=== PATIENT | male | born 1945 | race Caucasian/White ===

== ENCOUNTER 2017-09-09 12:20 | Inpatient (IN) ==
[2017-09-09] MEDS ORDERED: Ipratropium/Albuterol Neb 3 ML ONE (14:38)
[2017-09-09] MEDS: Ipratropium/Albuterol Neb 3 ML IH SCH ×2 (14:43→20:30)
[2017-09-09 15:21] LABS: ABG Base Excess -2 mEq/L (-2 to 3); ABG HCO3 26 mEq/L (21-27); ABG Oxygen Saturation 94 % (95-98); ABG PCO2 56 mmHg (35-45); ABG PH 7.27 pH Units (7.32-7.45); ABG PO2 81 mmHg (85-104); ABG TCO2 27 mEq/L (20-26)
--- NOTE | 2017-09-09 19:44 | Internal Med History&Physical ---
Date of Encounter: 09/10/17 Time of Encounter: 14:00 Assessment and Plan (1) Pleural effusion, left Current visit: No Status: Acute -CT of chest which was done and showed a large left pleural effusion with collapse of the entire left lung in addition to the occlusion of the left mainstem bronchus with mucoid impaction aspirated material and underlying endobronchial lesion. -Interface Control Officer consulted and appreciate recommendations (2) Acute and chronic respiratory failure Current visit: Yes Status: Acute Qualifiers: Respiratory failure complication: unspecified whether with hypoxia or hypercapnia Qualified Code(s): J96.20 - Acute and chronic respiratory failure , unspecified whether with hypoxia or hypercapnia (3) Pneumonia Current visit: No Status: Acute -Also noted on CT chest noted was moderate right pleural effusion with patchy heterogeneous infiltrate throughout all lobes suggestive of pneumonia -Will cover for HAP;history unknown. 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 Discussed with ICU for comanagement and patient was transferred to [facility] ICU for potential thoracentesis. Labs revealed ABG with severe respiratory acidosis and patient requires BiPAP to maintain sats in low 90s. Discussed with forest nursery worker with recommendations for CT of chest which was done and showed a large left pleural effusion with collapse of the entire left lung in addition to the occlusion of the left mainstem bronchus with mucoid impaction aspirated material and underlying endobronchial lesion. So noted was moderate right pleural effusion with patchy heterogeneous infiltrate throughout all lobes suggestive of pneumonia. Results were discussed with forest nursery worker with recommendations for continued BiPAP until the morning for a potential bronchoscopy/thoracentesis. Past Med Surg Social Fam HX - Past Medical History Medical history: diabetes, hypertension, renal disease, other Psychiatric history: no psych history - Social History Smoking Status: Former smoker Smokeless Tobacco Status: No Alcohol use: none Drug use: none Internal Medicine - H&P: Meds Gabapentin [Neurontin] 100 mg PO TID 365 Days capsule 08/26/17 [Rx] Isosorbide MONOnitrate (24 HR) [Imdur] 60 mg PO DAILY tab.er.24h 08/26/17 [Rx] Magnesium Oxide [Mag-Ox] 400 mg PO BID tablet 08/26/17 [Rx] Amino Acids/Protein Hydrolys [Pro-Stat Awc Liquid Packet] 30 ml PO BID 09/09/17 [History] Bumetanide [Bumex] 1.5 mg PO DAILY 09/09/17 [History] Collagenase Oint [Santyl] 1 appl TP DAILY 09/09/17 [History] Insulin Glargine [Lantus] 15 unit SQ HS 09/09/17 [History] Insulin NPH Hum/Reg Insulin Hm [Novolin 70-30 100 Unit/ml Vial] 20 unit SQ DAILY 09/09/17 [History] Isosorbide MONOnitrate (24 HR) [Imdur] 60 mg PO DAILY 09/09/17 [History] Metoprolol XL (24 HR) Succ [Toprol XL] 50 mg PO DAILY 09/09/17 [History] Metoprolol XL (24 HR) Succ [Toprol Xl] 25 mg PO DAILY 09/09/17 [History] Multivit with Calcium,Iron,Min [Essential Daily] 1 each PO DAILY 09/09/17 [ History] Zinc Sulfate 220 mg PO DAILY 09/09/17 [History] 3 Allergy/AdvReac Type Severity Reaction Status Date / Time No Known Allergies Allergy Verified 09/09/17 10:10 All Systems PM: A 10-system review of systems was performed and is negative for pertinent findings except as documented above in the HPI. - Constitutional Vitals: Temp Pulse Resp BP Pulse Ox 96.4 F L 112 19 137/96 94 09/09/17 14:58 09/09/17 18:00 09/09/17 18:00 09/09/17 18:00 09/09/17 18:00 General appearance: Present: severe distress - ENT ENT exam: Present: mucous membranes dry - Respiratory Respiratory exam: Present: accessory muscle use, respiratory distress - Cardiovascular Cardiovascular exam: Present: RRR, +S1, +S2. Absent: diastolic murmur, gallop, rubs, systolic murmur - Neurological Exam Neurological exam: Present: altered - Psychiatric Psychiatric exam: Present: normal mood Internal Med - H&P Results - Labs CBC & Chem 7: 09/10/17 03:45 09/10/17 03:45 - ABG Interpretation ABG results: 09/09/17 15:04 ABG pH 7.27 L ABG pCO2 56 H ABG pO2 81 L ABG HCO3 26 ABG Total CO2 27 H ABG O2 Saturation 94 L ABG Base Excess -2 - Impressions ITS Impressions Chest CT 09/09/17 15:50 IMPRESSION: Large left pleural effusion with collapse of the entire left lung. There is occlusion of the left mainstem bronchus shortly after its origin, for which mucoid impaction, aspirated material, or underlying endobronchial lesion are considerations. Moderate right pleural effusion with patchy heterogeneous infiltrate throughout all lobes, suggestive of pneumonia. Soft tissue anasarca. Atherosclerosis, including coronary artery calcification. 2.1 cm hypodense left thyroid nodule. In the nonacute setting, thyroid ultrasound would be helpful for further characterization. Results were called by the radiology call center. D/ / Brenton Dutta MD / Brenton Dutta MD Interpreting Provider: Brenton Dutta MD
[2017-09-09] MEDS ORDERED: Naloxone 0.4 MG/ML INJ IVP PRN (19:50)
[2017-09-09] MEDS ORDERED: Vancomycin 1,500 MG in D5% in Water 250 ML IVPB SCH (20:00)
[2017-09-09 20:21] LABS: Basophils % 0.1 %; Hematocrit 31.7 % (37.5-50.1); Hemoglobin 9.2 g/dL (12.9-16.9); Immature Granulocytes % 0.6 % (0-4); Lymphocytes # 0.5 K/mcL (0.6-4.6); Lymphocytes % 2.5 %; Mean Corpuscular Hemoglobin 29.5 pg (28.0-33.3); Mean Corpuscular Volume 101.6 fL (83.0-100.0); Mean Platelet Volume 11.5 fL (9.4-12.4); Monocytes # 0.6 K/mcL (0.0-1.3); Neutrophils # 18.8 K/mcL (1.6-8.9); Platelet Count 218 K/mcL (140-400); Red Blood Count 3.12 M/mcL (4.19-5.50); Red Cell Distribution Width 14.5 % (11.5-14.5); Segmented Neutrophils % 93.8 %
[2017-09-09 20:39] LABS: Albumin/Globulin Ratio 0.6 (1.1-2.2); Bilirubin,Total 0.3 mg/dL (0.3-1.0); Calcium 7.2 mg/dL (8.6-10.3); Globulin 3.4 g/dL (2.4-3.5); Potassium 5.7 mEq/L (3.5-5.1); Total Protein 5.4 g/dL (6.4-8.9)
[2017-09-09] MEDS ORDERED: Vancomycin 1,750 MG in D5% in Water 500 ML IVPB SCH (21:00)
[2017-09-09] MEDS: *HR* Heparin 5,000 UNIT/ML VIAL SQ SCH (21:46)
[2017-09-10] MEDS: Ipratropium/Albuterol Neb 3 ML IH SCH ×6 (00:03→20:06)
[2017-09-10 03:59] LABS: Basophils % 0.1 %; Hematocrit 29.8 % (37.5-50.1); Hemoglobin 8.7 g/dL (12.9-16.9); Immature Granulocytes % 0.4 % (0-4); Lymphocytes # 0.5 K/mcL (0.6-4.6); Lymphocytes % 2.9 %; Mean Corpuscular HGB Conc 29.2 g/dL (31.6-35.5); Mean Corpuscular Volume 99.3 fL (83.0-100.0); Mean Platelet Volume 11.7 fL (9.4-12.4); Monocytes # 0.4 K/mcL (0.0-1.3); Monocytes % 2.6 %; Neutrophils # 14.4 K/mcL (1.6-8.9); Platelet Count 205 K/mcL (140-400); Red Cell Distribution Width 14.5 % (11.5-14.5)
[2017-09-10] MEDS: Insulin LISPRO 300 UNITS/3 ML VIAL SQ SCH ×5 (04:19→20:01)
[2017-09-10 04:32] LABS: Calcium 7.4 mg/dL (8.6-10.3); Potassium 5.5 mEq/L (3.5-5.1)
[2017-09-10 05:35] LABS: ABG Base Excess -1 mEq/L (-2 to 3); ABG HCO3 25 mEq/L (21-27); ABG Oxygen Saturation 95 % (95-98); ABG PCO2 45 mmHg (35-45); ABG PH 7.35 pH Units (7.32-7.45); ABG PO2 79 mmHg (85-104); ABG TCO2 26 mEq/L (20-26); Blood Gas Modality NIV; Blood Gas PEEP 8 cm H2O; Blood Gas Pressure Support 25 cm H2O; Blood Gas VT 500 cc
--- NOTE | 2017-09-10 07:09 | Pulmonology Consult Note ---
<Grabiel Varghese - Last Filed: 09/10/17 10:52> Date of Encounter: 09/10/17 Time of Encounter: 07:08 Assessment and Plan (1) Acute and chronic respiratory failure Current Visit: Yes Status: Acute Patient has been tolerating BiPAP overnight. His O2 saturations remained in the mid 90s. He is in no respiratory distress at this time. He is having mildly labored respirations but is otherwise resting comfortably. He is following commands and answering questions. The patient will likely receive a bronchoscopy as well as thoracentesis for large pleural effusion. We will continue to monitor the patient's respiratory status. Patient had roughly 3 L of fluid that came out of his pleural fluid. Cytology was sent. The patient will also be administered 40 mg IV Lasix today. We will repeat the patient's renal function and potassium. Full liquid ordered for follow-up of input and outputs. Qualifiers: Respiratory failure complication: unspecified whether with hypoxia or hypercapnia Qualified Code(s): J96.20 - Acute and chronic respiratory failure , unspecified whether with hypoxia or hypercapnia (2) Pleural effusion Current Visit: Yes Status: Acute Patient's pleural effusion is worse on the left with essentially total collapse of the left lung. In addition there is a moderate right pleural effusion as well. The patient will likely receive bronchoscopy as well as likely thoracentesis today to drain patient's pleural effusion. (3) Pneumonia Current Visit: No Status: Acute Patient on broad-spectrum antibiotics. There is covering for health care associated pneumonia as the patient's history is poorly known. Currently awaiting a sputum culture and likely sending a bronchitic culture and will likely de-escalate antibiotic at that time. Qualifiers: Pneumonia type: due to unspecified organism Laterality: bilateral Lung location: unspecified part of lung Qualified Code(s): J18.9 - Pneumonia, unspecified organism (4) Lymphedema of both lower extremities Current Visit: No Status: Acute Likely some chronic nature to this due to the patient's ulcers. We will perform an echocardiogram today to evaluate patient's left ventricular EF. The patient will likely receive some diuresis we will continue to monitor the patient's respiratory status. (5) Ulcers of both lower legs Current Visit: No Status: Chronic (6) Renal failure Current Visit: No Status: Chronic Qualifiers: Renal failure chronicity: chronic Chronic kidney disease stage: unspecified stage Qualified Code(s): N18.9 - Chronic kidney disease, unspecified History of Present Illness Consult date: 09/09/17 Requesting physician: Brock Benoit Reason for consult: dyspnea, pneumonia, pleural effusion Chief complaint: Dyspnea History of present illness: 72-year-old male with history of type 2 diabetes insulin-dependent, cardiomyopathy, hypertension arrives to [facility] ICU as a transfer from [place] emergency department due to acute respiratory failure secondary to pleural effusions. Chest CT had large left pleural effusion with collapse of left lung as well as occlusion of the left mainstem bronchus with mucoid impaction aspirated material and underlying endobronchial lesions. Noted moderate right pleural effusion with patchy heterogeneous infiltrate suggestive of pneumonia. The patient was started on IV antibiotics and has been doing well on BiPAP overnight. The patient is alert and oriented per nursing staff overnight but states that the patient has become slightly more confused than when he first arrived to the ICU. In addition the nursing staff noted a large amount of swelling in his scrotum and groin as well as worsening in bilateral lower extremities. This is worsened over the course of the evening as well. The patient is maintaining his O2 saturation in the mid to low 90s on BiPAP. He is slightly tachycardic with a heart rate in the low 100 teens to 120. The patient denies any pain right now but states that he is still having some subjective difficulty breathing. Past Med Surg Social Fam HX - Past Medical History Source: old records reviewed Medical history: diabetes, hypertension, renal disease, other Psychiatric history: no psych history - Social History Smoking Status: Former smoker Smokeless Tobacco Status: No Alcohol use: none Drug use: none Medications and Allergies Gabapentin [Neurontin] 100 mg PO TID 365 Days capsule 08/26/17 [Rx] Isosorbide MONOnitrate (24 HR) [Imdur] 60 mg PO DAILY tab.er.24h 08/26/17 [Rx] Magnesium Oxide [Mag-Ox] 400 mg PO BID tablet 08/26/17 [Rx] Amino Acids/Protein Hydrolys [Pro-Stat Awc Liquid Packet] 30 ml PO BID 09/09/17 [History] Bumetanide [Bumex] 1.5 mg PO DAILY 09/09/17 [History] Collagenase Oint [Santyl] 1 appl TP DAILY 09/09/17 [History] Insulin Glargine [Lantus] 15 unit SQ HS 09/09/17 [History] Insulin NPH Hum/Reg Insulin Hm [Novolin 70-30 100 Unit/ml Vial] 20 unit SQ DAILY 09/09/17 [History] Metoprolol XL (24 HR) Succ [Toprol XL] 50 mg PO DAILY 09/09/17 [History] Multivit with Calcium,Iron,Min [Essential Daily] 1 each PO DAILY 09/09/17 [ History] Zinc Sulfate 220 mg PO DAILY 09/09/17 [History] Potassium Chloride [Klor-Con 10] 10 meq PO DAILY 09/10/17 [History] 3 Allergy/AdvReac Type Severity Reaction Status Date / Time No Known Allergies Allergy Verified 09/09/17 10:10 All Systems: A 10-system review of systems was performed and is negative for pertinent findings except as documented above in the HPI. - Constitutional Constitutional: weakness - EENT Nose, mouth and throat: dry mouth - Cardiovascular Cardiovascular: dyspnea, edema, pedal edema - Respiratory Respiratory: cough, dyspnea, dyspnea on exertion - Gastrointestinal Gastrointestinal: no abdominal pain Physical Examination Vital Signs: Vital Signs, Last 4 Hours Pulse Resp BP Pulse Ox 09/10/17 06:00 73 09/10/17 05:00 121 20 107/71 95 09/10/17 04:02 22 109/73 91 09/10/17 04:00 75 22 109/73 96 General appearance: no acute distress, alert Eyes: nonicteric ENT: oropharynx dry Effort: mildly labored Inspection: normal Auscultation: bilateral: diminished breath sounds (Almost no lung sounds on left ) Cardiovascular: other (Tachycardic and regular rhythm) Gastrointestinal: soft, non-tender Integumentary: normal Extremities: no cyanosis, edema (2+ pitting with bandages in place. Edema radiates into scrotum and penis.), other (Chronic ulcerations noted on bilateral lower extremities with dressings in place.) non-focal exam, other (Patient was able to answer questions correctly and follow commands.) Results - Laboratory Findings CBC and BMP: 09/10/17 03:45 09/10/17 03:45 ABG ABG pH 7.35 pH Units (7.32-7.45) 09/10/17 05:32 ABG pCO2 45 mmHg (35-45) 09/10/17 05:32 ABG pO2 79 mmHg (85-104) L 09/10/17 05:32 ABG O2 Saturation 95 % (95-98) 09/10/17 05:32 Abnormal lab findings: Abnormal lab results WBC 15.3 K/mcL (4.3-11.1) H 09/10/17 03:45 RBC 3.00 M/mcL (4.19-5.50) L 09/10/17 03:45 Hgb 8.7 g/dL (12.9-16.9) L 09/10/17 03:45 Hct 29.8 % (37.5-50.1) L 09/10/17 03:45 MCHC 29.2 g/dL (31.6-35.5) L 09/10/17 03:45 Neutrophils # 14.4 K/mcL (1.6-8.9) H 09/10/17 03:45 Lymphocytes # 0.5 K/mcL (0.6-4.6) L 09/10/17 03:45 ABG pO2 79 mmHg (85-104) L 09/10/17 05:32 Potassium 5.5 mEq/L (3.5-5.1) H 09/10/17 03:45 Chloride 108 mEq/L (98-107) H 09/10/17 03:45 BUN 70 mg/dL (8-23) H 09/10/17 03:45 Creatinine 1.89 mg/dL (0.70-1.30) H 09/10/17 03:45 Est GFR ( Amer) 43 (> 60) L 09/10/17 03:45 Est GFR (Non-Af Amer) 35 (> 60) L 09/10/17 03:45 BUN/Creatinine Ratio 37 (6-26) H 09/10/17 03:45 Glucose 245 mg/dL (70-105) H 09/10/17 03:45 POC Glucose 254 (58-89) H 09/10/17 00:06 Calculated Osmolality 317 (280-300) H 09/10/17 03:45 Calcium 7.4 mg/dL (8.6-10.3) L 09/10/17 03:45 Alkaline Phosphatase 107 Units/L (34-104) H 09/09/17 20:10 Serum Total Protein 5.4 g/dL (6.4-8.9) L 09/09/17 20:10 Albumin 2.0 g/dL (3.5-5.7) L 09/09/17 20:10 Albumin/Globulin Ratio 0.6 (1.1-2.2) L 09/09/17 20:10 - Clinical Findings Intake & Output: Intake & Output 09/09/17 09/09/17 09/10/17 15:59 23:59 07:59 Weight 97.8 kg 97.8 kg - Attending Attestation I examined this patient and my medical decision-making was reviewed with the Resident Physician. I agree with the documented findings, disposition and treatment plan as described except to the extent set forth below. <Toni Haji W - Last Filed: 09/10/17 14:12> Date of Encounter: 09/10/17 All Systems: A 10-system review of systems was performed and is negative for pertinent findings except as documented above in the HPI. Physical Examination Vital Signs: Vital Signs, Last 4 Hours Temp Pulse Resp BP Pulse Ox 09/10/17 09:32 20 91/56 97 09/10/17 09:00 71 28 112/83 95 09/10/17 08:00 124 18 98/63 94 09/10/17 07:30 98.6 F 09/10/17 07:26 20 93/54 96 09/10/17 06:00 73 Results - Laboratory Findings CBC and BMP: 09/10/17 03:45 09/10/17 11:54 ABG ABG pH 7.35 pH Units (7.32-7.45) 09/10/17 05:32 ABG pCO2 45 mmHg (35-45) 09/10/17 05:32 ABG pO2 79 mmHg (85-104) L 09/10/17 05:32 ABG O2 Saturation 95 % (95-98) 09/10/17 05:32 Abnormal lab findings: Abnormal lab results WBC 15.3 K/mcL (4.3-11.1) H 09/10/17 03:45 RBC 3.00 M/mcL (4.19-5.50) L 09/10/17 03:45 Hgb 8.7 g/dL (12.9-16.9) L 09/10/17 03:45 Hct 29.8 % (37.5-50.1) L 09/10/17 03:45 MCHC 29.2 g/dL (31.6-35.5) L 09/10/17 03:45 Neutrophils # 14.4 K/mcL (1.6-8.9) H 09/10/17 03:45 Lymphocytes # 0.5 K/mcL (0.6-4.6) L 09/10/17 03:45 ABG pO2 79 mmHg (85-104) L 09/10/17 05:32 Potassium 5.5 mEq/L (3.5-5.1) H 09/10/17 03:45 Chloride 108 mEq/L (98-107) H 09/10/17 03:45 BUN 70 mg/dL (8-23) H 09/10/17 03:45 Creatinine 1.89 mg/dL (0.70-1.30) H 09/10/17 03:45 Est GFR ( Amer) 43 (> 60) L 09/10/17 03:45 Est GFR (Non-Af Amer) 35 (> 60) L 09/10/17 03:45 BUN/Creatinine Ratio 37 (6-26) H 09/10/17 03:45 Glucose 245 mg/dL (70-105) H 09/10/17 03:45 POC Glucose 254 (58-89) H 09/10/17 00:06 Calculated Osmolality 317 (280-300) H 09/10/17 03:45 Calcium 7.4 mg/dL (8.6-10.3) L 09/10/17 03:45 Alkaline Phosphatase 107 Units/L (34-104) H 09/09/17 20:10 Serum Total Protein 5.4 g/dL (6.4-8.9) L 09/09/17 20:10 Albumin 2.0 g/dL (3.5-5.7) L 09/09/17 20:10 Albumin/Globulin Ratio 0.6 (1.1-2.2) L 09/09/17 20:10 - Clinical Findings Intake & Output: Intake & Output 09/09/17 09/10/17 09/10/17 23:59 07:59 15:59 Intake Total 100 / 100 0 / 0 Output Total 1450 / 1450 Balance 100 / 100 -1450 / -1450 Weight 97.8 kg - Attending Attestation I examined this patient and my medical decision-making was reviewed with the Resident Physician. I agree with the documented findings, disposition and treatment plan as described except to the extent set forth below. We independently had [id number] contact with the patient I spent 35 min of Critical Care time with this patient. It involved decision making of high complexity to assess, manipulate, and support vital organ system failure and/or to prevent further life threatening deterioration of the patient' s condition. The time involved in the performance of separately reportable procedures was not counted toward critical care time. Patient seen and examined at bedside Labs, radiology, chart personally reviewed. Management was reviewed during multidisciplinary critical care rounds. FLY FINISHER: Awake and follows commands. Monitor for Delirium Pulm: Acute Hypoxic Hypercarbic respiratory failure on continues NIPPV repeat ABG is reassuring but patient is at high risk for decompensation. wit b/l Pleural Effusion. Plan for small bore chest tube on left today. Treat for PNA . There is radiographic concern about left endobronchial obstruction with mucus or possible endobronchial lesion. Patient currently too unstable to proceed with bronchoscopy repeat CT scan after has to plate method to evaluate this further this clearly would be more concerning for primary neoplasia however CT scan done last month did not show any evidence of endobronchial obstruction at that time making this less likely but still a possibility. Send Pleural Fluid for studies including cytology Cards: BP stable. BNP elevated c/w CHF last ECHO PEF with indeterminate diastology. Grossly Anasarca on exam cautious diuresis. He has a troponin elevation which is likely demand ischemia we will trend troponin echocardiogram pending official interpretation cardiology consultation based upon results FEN-GI: Nothing by mouth for now Renal: CKD monitor UOP and place nj catheter. Trend serum creatinine twice daily for the next 48 hours. ID: Treating for PNA with antimicrobials with planned to de-escalate based upon speciation and sensitivities Heme/Onc: DVT prophylaxis given Endo: Glucose Monitored Integ/MSK: Skin Care per routine ICU Nursing Protocol to prevent ulcers. Lines: All lines examined without evidence of infection : Dispo: Remain in ICU for critical illness CODE: Full.
[2017-09-10] MEDS ORDERED: Vancomycin 1,500 MG in D5% in Water 250 ML IVPB SCH ×2 (08:00→12:00)
--- NOTE | 2017-09-10 09:16 | IR Procedure Note ---
Date of procedure: 09/10/17 Consent Obtained: Verbal consent Timeout: Correct patient and procedure verified, Correct site verified, Time out performed, Skin prep completed Local anesthetic: Lidocaine 1% Indications: Left sided large pleural effusion Procedure Performed: Left sided chest tube placement Was there an internal medicine physician assistant present: Yes Tuberculosis Specialist: Huber Garcia Site/Technique: Left chest. Drain placed at bedside in ICU. I was scrubbed in and assisted. Results/Findings: Draining well. No immediate complications. Estimated blood loss (cc): 1 Complications: None; Tolerated procedure well Post Procedure Treatment Plan: Monitoring in unit Specimen: Sample sent to lab
[2017-09-10] MEDS: *HR* Heparin 5,000 UNIT/ML VIAL SQ SCH ×3 (09:21→21:01)
[2017-09-10] MEDS: Levofloxacin 750 MG/150 ML 750 MG/150 ML BAG IVPB SCH (09:21)
[2017-09-10 10:20] LABS: RBC,Pleural Fluid < 0.002 M/mcL
[2017-09-10] MEDS ORDERED: Furosemide 40 MG/4 ML VIAL IVP ONE (10:50)
[2017-09-10] MEDS ORDERED: Albumin 25% 25gram/100mL 25 GM/100 ML IV.SOLN IVPB ONE (10:53)
[2017-09-10 10:54] LABS: Appearance of Pleural Fl Clear (Clear)
[2017-09-10 12:37] LABS: Calcium 7.1 mg/dL (8.6-10.3); Potassium 5.1 mEq/L (3.5-5.1)
[2017-09-10 13:35] LABS: Adenovirus Not Detected (Not Detect); Bordetella Pertussis Not Detected (Not Detect); Chlamydophila pneumoniae Not Detected (Not Detect); Coronavirus 229E Not Detected (Not Detect); Coronavirus HKU1 Not Detected (Not Detect); Coronavirus NL63 Not Detected (Not Detect); Coronavirus OC43 Not Detected (Not Detect); Human Metapneumovirus Not Detected (Not Detect); Human Rhinovirus/Enterovirus Not Detected (Not Detect); Influenza A Subtype 2009 H1 Not Detected (Not Detect); Influenza A Untypeable Not Detected (Not Detect); Influenza B Not Detected (Not Detect); Mycoplasma pneumoniae Not Detected (Not Detect); Parainfluenza Virus 1 Not Detected (Not Detect); Parainfluenza Virus 2 Not Detected (Not Detect); Parainfluenza Virus 3 Not Detected (Not Detect); Parainfluenza Virus 4 Not Detected (Not Detect); Respiratory Syncytial Virus Not Detected (Not Detect)
[2017-09-11] MEDS: Ipratropium/Albuterol Neb 3 ML IH SCH ×7 (00:03→23:46)
[2017-09-11] MEDS: Insulin LISPRO 300 UNITS/3 ML VIAL SQ SCH ×7 (00:16→23:31)
[2017-09-11] MEDS: *HR* Heparin 5,000 UNIT/ML VIAL SQ SCH ×3 (05:00→21:00)
[2017-09-11 05:09] LABS: ABG Base Excess -2 mEq/L (-2 to 3); ABG HCO3 24 mEq/L (21-27); ABG Oxygen Saturation 93 % (95-98); ABG PCO2 44 mmHg (35-45); ABG PH 7.34 pH Units (7.32-7.45); ABG PO2 70 mmHg (85-104); ABG TCO2 25 mEq/L (20-26); Blood Gas Modality NIV; Blood Gas PEEP 8 cm H2O; Blood Gas VT 500 cc
[2017-09-11 05:31] LABS: Basophils % 0.1 %; Hematocrit 24.9 % (37.5-50.1); Hemoglobin 7.5 g/dL (12.9-16.9); Immature Granulocytes % 0.4 % (0-4); Lymphocytes # 0.6 K/mcL (0.6-4.6); Lymphocytes % 5.5 %; Mean Corpuscular HGB Conc 30.1 g/dL (31.6-35.5); Mean Corpuscular Hemoglobin 29.3 pg (28.0-33.3); Mean Corpuscular Volume 97.3 fL (83.0-100.0); Mean Platelet Volume 12.1 fL (9.4-12.4); Monocytes # 0.3 K/mcL (0.0-1.3); Monocytes % 2.6 %; Neutrophils # 10.4 K/mcL (1.6-8.9); Platelet Count 202 K/mcL (140-400); Red Blood Count 2.56 M/mcL (4.19-5.50); Red Cell Distribution Width 14.6 % (11.5-14.5); Segmented Neutrophils % 91.4 %
[2017-09-11 05:46] LABS: Calcium 7.4 mg/dL (8.6-10.3); Magnesium 1.5 mg/dL (1.6-2.6); Potassium 4.8 mEq/L (3.5-5.1)
--- NOTE | 2017-09-11 07:41 | Pulmonology Progress Note ---
<Grabiel Varghese - Last Filed: 09/11/17 10:40> Date of Encounter: 09/11/17 Time of Encounter: 07:41 Assessment and Plan (1) Acute and chronic respiratory failure Current Visit: Yes Status: Acute Improved respiratory status from yesterday. The patient was placed on oxi-mask and is now on high flow nasal cannula. He is tolerating this well. He is in no respiratory distress at this time. We will continue to monitor the patient' s respiratory status over the course of the day. He will have BiPAP when necessary. Qualifiers: Respiratory failure complication: unspecified whether with hypoxia or hypercapnia Qualified Code(s): J96.20 - Acute and chronic respiratory failure , unspecified whether with hypoxia or hypercapnia (2) Pleural effusion Current Visit: Yes Status: Acute Improved pleural effusion on the left [place]. There is developed a pneumothorax ex vacuo in appearance of the left side. The patient's chest tube atria and water seal demonstrates roughly 800 mL of fluid within it. There is no suction to the wall at this time. We will continue to monitor the patient's fluid from his chest tube. The patient will need outpatient follow-up with cardiology. (3) Pneumonia Current Visit: No Status: Acute Patient's ammonia has continued to worsen of the right lung. He is continued on broad-spectrum antibiotic since this time. We are currently awaiting sputum cultures. The patient's blood cultures are negative for any growth but until we receive sputum cultures we will not de-escalate the patient antibiotics. Qualifiers: Pneumonia type: due to unspecified organism Laterality: bilateral Lung location: unspecified part of lung Qualified Code(s): J18.9 - Pneumonia, unspecified organism (4) Renal failure Current Visit: Yes Status: Acute Acute on chronic kidney failure. The patient's kidney injury has continued to worsen. His GFR is remained stable. His potassium is ray and stable. The patient is receiving 5% albumin 500 mL today. We will continue to monitor the patient's renal function. Qualifiers: Renal failure chronicity: chronic Chronic kidney disease stage: unspecified stage Qualified Code(s): N18.9 - Chronic kidney disease, unspecified (5) Anemia Current Visit: No Status: Acute There is likely a chronic component of this. We will continue to monitor the patient's hemoglobin. Qualifiers: Anemia type: unspecified type Qualified Code(s): D64.9 - Anemia, unspecified (6) Lymphedema of both lower extremities Current Visit: No Status: Acute Improved. (7) Ulcers of both lower legs Current Visit: No Status: Chronic Subjective Principal diagnosis: Pleural effusion, respiratory distress, pneumonia Interval history: Patient done well overnight. He was taken off BiPAP fairly early this morning. He is to Aloxi mask and is now currently on 6 L nasal cannula that is humidified. The patient has an O2 saturation ranging from 89-92% on this. He is in no respiratory distress at this time. The patient's chest tube was clamped off overnight. CT scan this morning demonstrates pneumothorax, remaining pleural fluid on the left side. Worsening right sided pneumonia. The patient's respiratory status has continued to improve. The patient's mental status is also continued to improve. The patient is requesting something to drink. He states he is feeling much better this morning. The patient is in no respiratory distress. He was seen by wound care one day ago for his bilateral lower extremity ulcerations. Swelling in bilateral lower extremities, scrotum, upper extremities has decreased. The patient was administered 40 mg IV Lasix 1 day ago. The patient denies any other complaints at this time. Objective PUL Vital signs: Last Vital Signs Temp 97 F L 09/11/17 04:00 Pulse 76 09/11/17 06:00 Resp 7 09/11/17 06:00 BP 137/80 09/11/17 06:00 Pulse Ox 94 09/11/17 06:00 General appearance: no acute distress Eyes: nonicteric ENT: oropharynx dry Neck: supple Effort: normal Auscultation: right: rhonchi, bilateral: diminished breath sounds Cardiovascular: regular rate and rhythm Gastrointestinal: soft, non-tender, non-distended Extremities: no cyanosis, edema (1+ pitting edema bilateral lower extremities.) , other (Dressings in place of bilateral lower extremities.) Musculoskeletal: no deformities normal mental status, non-focal exam mood appropriate, affect normal Ventilator Settings Ventilator Settings: Ventilator Settings, Last 8 Hours Ventilator Tidal Volume 500 Setting Results - Laboratory Findings CBC and BMP: 09/11/17 04:47 09/11/17 05:15 ABG ABG pH 7.34 pH Units (7.32-7.45) 09/11/17 05:05 ABG pCO2 44 mmHg (35-45) 09/11/17 05:05 ABG pO2 70 mmHg (85-104) L 09/11/17 05:05 ABG O2 Saturation 93 % (95-98) L 09/11/17 05:05 Abnormal lab findings: Abnormal lab results WBC 11.4 K/mcL (4.3-11.1) H 09/11/17 04:47 RBC 2.56 M/mcL (4.19-5.50) L 09/11/17 04:47 Hgb 7.5 g/dL (12.9-16.9) L 09/11/17 04:47 Hct 24.9 % (37.5-50.1) L 09/11/17 04:47 MCHC 30.1 g/dL (31.6-35.5) L 09/11/17 04:47 RDW 14.6 % (11.5-14.5) H 09/11/17 04:47 Neutrophils # 10.4 K/mcL (1.6-8.9) H 09/11/17 04:47 ABG pO2 70 mmHg (85-104) L 09/11/17 05:05 ABG O2 Saturation 93 % (95-98) L 09/11/17 05:05 Chloride 109 mEq/L (98-107) H 09/11/17 05:15 BUN 79 mg/dL (8-23) H 09/11/17 05:15 Creatinine 2.14 mg/dL (0.70-1.30) H 09/11/17 05:15 Est GFR ( Amer) 37 (> 60) L 09/11/17 05:15 Est GFR (Non-Af Amer) 31 (> 60) L 09/11/17 05:15 BUN/Creatinine Ratio 37 (6-26) H 09/11/17 05:15 Glucose 145 mg/dL (70-105) H 09/11/17 05:15 POC Glucose 160 (58-89) H 09/11/17 03:27 Calculated Osmolality 320 (280-300) H 09/11/17 05:15 Calcium 7.4 mg/dL (8.6-10.3) L 09/11/17 05:15 Magnesium 1.5 mg/dL (1.6-2.6) L 09/11/17 05:15 Alkaline Phosphatase 107 Units/L (34-104) H 09/09/17 20:10 Serum Total Protein 5.4 g/dL (6.4-8.9) L 09/09/17 20:10 Albumin 2.0 g/dL (3.5-5.7) L 09/09/17 20:10 Albumin/Globulin Ratio 0.6 (1.1-2.2) L 09/09/17 20:10 - Clinical Findings Intake & Output: Intake & Output 09/10/17 09/10/17 09/11/17 15:59 23:59 07:59 Intake Total 350 / 350 350 / 350 100 / 100 Output Total 1750 / 1750 500 / 500 Balance -1400 / -1400 -150 / -150 100 / 100 Weight 97.8 kg Consult Discharge Plan - Plan Referrals: NONE,PCP [Primary Care Provider] - - Attending Attestation I examined this patient and my medical decision-making was reviewed with the Resident Physician. I agree with the documented findings, disposition and treatment plan as described except to the extent set forth below. <Toni Haji W - Last Filed: 09/11/17 12:15> Date of Encounter: 09/11/17 Objective PUL Vital signs: Last Vital Signs Temp 96.4 F L 09/11/17 07:50 Pulse 78 09/11/17 08:00 Resp 23 09/11/17 08:34 BP 119/77 09/11/17 08:34 Pulse Ox 90 09/11/17 08:34 Ventilator Settings Ventilator Settings: Ventilator Settings, Last 8 Hours Ventilator Tidal Volume 500 Setting Ventilator Tidal Volume 500 Setting Results - Laboratory Findings CBC and BMP: 09/11/17 04:47 09/11/17 05:15 ABG ABG pH 7.34 pH Units (7.32-7.45) 09/11/17 05:05 ABG pCO2 44 mmHg (35-45) 09/11/17 05:05 ABG pO2 70 mmHg (85-104) L 09/11/17 05:05 ABG O2 Saturation 93 % (95-98) L 09/11/17 05:05 Abnormal lab findings: Abnormal lab results WBC 11.4 K/mcL (4.3-11.1) H 09/11/17 04:47 RBC 2.56 M/mcL (4.19-5.50) L 09/11/17 04:47 Hgb 7.5 g/dL (12.9-16.9) L 09/11/17 04:47 Hct 24.9 % (37.5-50.1) L 09/11/17 04:47 MCHC 30.1 g/dL (31.6-35.5) L 09/11/17 04:47 RDW 14.6 % (11.5-14.5) H 09/11/17 04:47 Neutrophils # 10.4 K/mcL (1.6-8.9) H 09/11/17 04:47 ABG pO2 70 mmHg (85-104) L 09/11/17 05:05 ABG O2 Saturation 93 % (95-98) L 09/11/17 05:05 Chloride 109 mEq/L (98-107) H 09/11/17 05:15 BUN 79 mg/dL (8-23) H 09/11/17 05:15 Creatinine 2.14 mg/dL (0.70-1.30) H 09/11/17 05:15 Est GFR ( Amer) 37 (> 60) L 09/11/17 05:15 Est GFR (Non-Af Amer) 31 (> 60) L 09/11/17 05:15 BUN/Creatinine Ratio 37 (6-26) H 09/11/17 05:15 Glucose 145 mg/dL (70-105) H 09/11/17 05:15 POC Glucose 160 (58-89) H 09/11/17 03:27 Calculated Osmolality 320 (280-300) H 09/11/17 05:15 Calcium 7.4 mg/dL (8.6-10.3) L 09/11/17 05:15 Magnesium 1.5 mg/dL (1.6-2.6) L 09/11/17 05:15 Alkaline Phosphatase 107 Units/L (34-104) H 09/09/17 20:10 Serum Total Protein 5.4 g/dL (6.4-8.9) L 09/09/17 20:10 Albumin 2.0 g/dL (3.5-5.7) L 09/09/17 20:10 Albumin/Globulin Ratio 0.6 (1.1-2.2) L 09/09/17 20:10 - Clinical Findings Intake & Output: Intake & Output 09/10/17 09/11/17 09/11/17 23:59 07:59 15:59 Intake Total 350 / 350 100 / 100 360 / 360 Output Total 500 / 500 370 / 370 Balance -150 / -150 -270 / -270 360 / 360 Weight 97.8 kg - Attending Attestation I examined this patient and my medical decision-making was reviewed with the Resident Physician. I agree with the documented findings, disposition and treatment plan as described except to the extent set forth below. We independently had [id number] contact with the patient Patient seen and examined at bedside Labs, radiology, chart personally reviewed. Management was reviewed during multidisciplinary critical care rounds. 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 Left chest tube to water seal today with repeat CT scan notable for persistent PTX Ex Vacuo. Pleural fluid studies thus far suggest transudative process (rest of studies pending). Respiratory status is tenuous however on [place] Nasal Cannula Cards: BNP elevated and ECHO suggest decreased EF% he will need cardiology evaluation on an outpatient basis. Holding diuresis because of worsening SETH FEN-GI: ADAT. Renal: SETH on CKD worsened overnight likely related to diuresis. TBW overloaded intravascular depleted giving albumin challenge today. Cont to monitor UOP ID: Treating for PNA with plan to deescalate ABx. Heme/Onc: DVT prophylaxis Given Endo: Glucose Monitored Integ/MSK: Skin Care per routine ICU Nursing Protocol to prevent ulcers. Lines: All lines examined without evidence of infection : Dispo: Remain in ICU today CODE: Full
[2017-09-11] MEDS ORDERED: Aminoglycoside Consult 1 EACH MC ONE (08:17)
[2017-09-11 14:31] LABS: Glucose,Pleural Fluid 195 mg/dL (No Ref Range); Total Protein,Pleural Fluid < 3.0 g/dL (No Ref Range); Triglycerides, Pleural Fluid 10 mg/dL (No Ref Range)
[2017-09-12] MEDS: Insulin LISPRO 300 UNITS/3 ML VIAL SQ SCH ×4 (03:12→16:24)
[2017-09-12] MEDS: Ipratropium/Albuterol Neb 3 ML IH SCH ×5 (04:20→19:55)
[2017-09-12] MEDS: *HR* Heparin 5,000 UNIT/ML VIAL SQ SCH (05:35)
[2017-09-12 06:04] LABS: Basophils % 0.1 %; Hemoglobin 8.7 g/dL (12.9-16.9)
[2017-09-12 06:06] LABS: Eosinophils % 0.1 %; Hematocrit 29.4 % (37.5-50.1); Immature Granulocytes % 0.5 % (0-4); Lymphocytes # 0.4 K/mcL (0.6-4.6); Lymphocytes % 3.4 %; Mean Corpuscular HGB Conc 29.6 g/dL (31.6-35.5); Mean Corpuscular Hemoglobin 29.6 pg (28.0-33.3); Mean Platelet Volume 11.4 fL (9.4-12.4); Monocytes # 0.4 K/mcL (0.0-1.3); Monocytes % 3.5 %; Platelet Count 210 K/mcL (140-400); Red Blood Count 2.94 M/mcL (4.19-5.50); Red Cell Distribution Width 14.6 % (11.5-14.5); Segmented Neutrophils % 92.4 %
[2017-09-12 06:34] LABS: Calcium 7.7 mg/dL (8.6-10.3); Magnesium 1.7 mg/dL (1.6-2.6)
[2017-09-12 06:49] LABS: Hypochromasia Present (Not Present)
[2017-09-12 06:50] LABS: Platelet Clumps Few (Not Present); Platelet Estimate Normal (Normal)
--- NOTE | 2017-09-12 07:12 | Pulmonology Progress Note ---
<Grabiel Varghese - Last Filed: 09/12/17 10:41> Date of Encounter: 09/12/17 Time of Encounter: 07:12 Assessment and Plan (1) Acute and chronic respiratory failure Current Visit: Yes Status: Acute Improved respiratory status from yesterday. Patient has intermittently been on occipital scalp is occasional without difficulty. Patient's chest tube is currently draining to gravity. Qualifiers: Respiratory failure complication: unspecified whether with hypoxia or hypercapnia Qualified Code(s): J96.20 - Acute and chronic respiratory failure , unspecified whether with hypoxia or hypercapnia (2) Pleural effusion Current Visit: Yes Status: Acute Improved pleural effusion on the left lung field. There is a continued pneumothorax ex vacuo in appearance of the left side. We will continue to monitor the patient's fluid from his chest tube. The patient will need outpatient follow-up with cardiology. (3) Pneumonia Current Visit: No Status: Acute Patient's ammonia has continued to worsen of the right lung. He is continued on broad-spectrum antibiotic since this time. We are currently awaiting sputum cultures. The patient's blood cultures are negative for any growth but until we receive sputum cultures finalized we will not de-escalate the patient antibiotics. Qualifiers: Pneumonia type: due to unspecified organism Laterality: bilateral Lung location: unspecified part of lung Qualified Code(s): J18.9 - Pneumonia, unspecified organism (4) Renal failure Current Visit: Yes Status: Acute Acute on chronic kidney failure. The patient's kidney injury has continued to worsen. His GFR is remained stable. His potassium is ray and stable. Renal function has continued to worsen. We will continue to monitor the patient's renal function. Nephrology will be consulted. Qualifiers: Renal failure chronicity: chronic Chronic kidney disease stage: unspecified stage Qualified Code(s): N18.9 - Chronic kidney disease, unspecified (5) Anemia Current Visit: No Status: Acute There is likely a chronic component of this, but it is improved today. We will continue to monitor the patient's hemoglobin. Qualifiers: Anemia type: unspecified type Qualified Code(s): D64.9 - Anemia, unspecified (6) Lymphedema of both lower extremities Current Visit: No Status: Acute Improved. (7) Ulcers of both lower legs Current Visit: No Status: Chronic Subjective Principal diagnosis: Pleural effusion, respiratory distress, pneumonia Interval history: Patient's respiratory status has continued to improve. Neurologic coughing last night and chest x-ray appears to have some more inflation of the patient's pneumothorax. The patient's chest tube is draining to gravity overnight. His renal function has continued to worsen with a creatinine of 2.52. Patient's hemoglobin stabilized. The patient will be transferred to a stepdown unit. Patient is also requesting to be transferred to [facility]. We will work on transfer today. Objective PUL Vital signs: Last Vital Signs Temp 96.8 F L 09/12/17 06:00 Pulse 59 09/12/17 06:00 Resp 17 09/12/17 06:00 BP 101/70 09/12/17 06:00 Pulse Ox 96 09/12/17 06:00 General appearance: no acute distress Eyes: nonicteric ENT: oropharynx moist Effort: normal Auscultation: bilateral: diminished breath sounds Cardiovascular: regular rate and rhythm Gastrointestinal: soft, non-tender Integumentary: normal Extremities: no cyanosis, no clubbing, edema (trace pitting), other (Wounds present in bilateral lower extremities. Wound care consulted with dressings on place this time.) normal mental status, non-focal exam Results - Laboratory Findings CBC and BMP: 09/12/17 05:46 09/12/17 05:46 ABG ABG pH 7.34 pH Units (7.32-7.45) 09/11/17 05:05 ABG pCO2 44 mmHg (35-45) 09/11/17 05:05 ABG pO2 70 mmHg (85-104) L 09/11/17 05:05 ABG O2 Saturation 93 % (95-98) L 09/11/17 05:05 Abnormal lab findings: Abnormal lab results WBC 11.9 K/mcL (4.3-11.1) H 09/12/17 05:46 RBC 2.94 M/mcL (4.19-5.50) L 09/12/17 05:46 Hgb 8.7 g/dL (12.9-16.9) L 09/12/17 05:46 Hct 29.4 % (37.5-50.1) L 09/12/17 05:46 MCHC 29.6 g/dL (31.6-35.5) L 09/12/17 05:46 RDW 14.6 % (11.5-14.5) H 09/12/17 05:46 Neutrophils # 11.0 K/mcL (1.6-8.9) H 09/12/17 05:46 Lymphocytes # 0.4 K/mcL (0.6-4.6) L 09/12/17 05:46 Clumped Platelets Few (Not Present) A 09/12/17 05:46 Hypochromasia Present (Not Present) A 09/12/17 05:46 ABG pO2 70 mmHg (85-104) L 09/11/17 05:05 ABG O2 Saturation 93 % (95-98) L 09/11/17 05:05 Chloride 109 mEq/L (98-107) H 09/12/17 05:46 BUN 82 mg/dL (8-23) H 09/12/17 05:46 Creatinine 2.52 mg/dL (0.70-1.30) H 09/12/17 05:46 Est GFR ( Amer) 31 (> 60) L 09/12/17 05:46 Est GFR (Non-Af Amer) 25 (> 60) L 09/12/17 05:46 BUN/Creatinine Ratio 33 (6-26) H 09/12/17 05:46 Glucose 160 mg/dL (70-105) H 09/12/17 05:46 POC Glucose 133 (58-89) H 09/12/17 03:05 Calculated Osmolality 322 (280-300) H 09/12/17 05:46 Calcium 7.7 mg/dL (8.6-10.3) L 09/12/17 05:46 Alkaline Phosphatase 107 Units/L (34-104) H 09/09/17 20:10 Serum Total Protein 5.4 g/dL (6.4-8.9) L 09/09/17 20:10 Albumin 2.0 g/dL (3.5-5.7) L 09/09/17 20:10 Albumin/Globulin Ratio 0.6 (1.1-2.2) L 09/09/17 20:10 Vancomycin Trough 23.2 mcg/mL (10-20) H* 09/11/17 11:24 - Microbiology Findings Microbiology Findings: Microbiology, Last 48 Hours 09/11/17 12:00 Sputum Culture - Preliminary Sputum 09/10/17 15:00 Body Fluid Culture - Preliminary Pleural Fluid 09/11/17 10:46 Legionella Antigen - Final Urine,Catheterized Streptococcus pneumoniae Antigen (M - Final - Clinical Findings Intake & Output: Intake & Output 09/11/17 09/11/17 09/12/17 15:59 23:59 07:59 Intake Total 710 / 710 350 / 350 200 / 200 Output Total 450 / 450 545 / 545 235 / 235 Balance 260 / 260 -195 / -195 -35 / -35 Weight 97.1 kg Consult Discharge Plan - Plan Referrals: NONE,PCP [Primary Care Provider] - - Attending Attestation I examined this patient and my medical decision-making was reviewed with the Resident Physician. I agree with the documented findings, disposition and treatment plan as described except to the extent set forth below. <Toni Haji W - Last Filed: 09/12/17 10:52> Date of Encounter: 09/12/17 Objective PUL Vital signs: Last Vital Signs Temp 96.8 F L 09/12/17 08:00 Pulse 71 09/12/17 10:00 Resp 19 09/12/17 10:00 BP 140/83 09/12/17 10:00 Pulse Ox 98 09/12/17 10:00 Results - Laboratory Findings CBC and BMP: 09/12/17 05:46 09/12/17 05:46 ABG ABG pH 7.34 pH Units (7.32-7.45) 09/11/17 05:05 ABG pCO2 44 mmHg (35-45) 09/11/17 05:05 ABG pO2 70 mmHg (85-104) L 09/11/17 05:05 ABG O2 Saturation 93 % (95-98) L 09/11/17 05:05 Abnormal lab findings: Abnormal lab results WBC 11.9 K/mcL (4.3-11.1) H 09/12/17 05:46 RBC 2.94 M/mcL (4.19-5.50) L 09/12/17 05:46 Hgb 8.7 g/dL (12.9-16.9) L 09/12/17 05:46 Hct 29.4 % (37.5-50.1) L 09/12/17 05:46 MCHC 29.6 g/dL (31.6-35.5) L 09/12/17 05:46 RDW 14.6 % (11.5-14.5) H 09/12/17 05:46 Neutrophils # 11.0 K/mcL (1.6-8.9) H 09/12/17 05:46 Lymphocytes # 0.4 K/mcL (0.6-4.6) L 09/12/17 05:46 Clumped Platelets Few (Not Present) A 09/12/17 05:46 Hypochromasia Present (Not Present) A 09/12/17 05:46 ABG pO2 70 mmHg (85-104) L 09/11/17 05:05 ABG O2 Saturation 93 % (95-98) L 09/11/17 05:05 Chloride 109 mEq/L (98-107) H 09/12/17 05:46 BUN 82 mg/dL (8-23) H 09/12/17 05:46 Creatinine 2.52 mg/dL (0.70-1.30) H 09/12/17 05:46 Est GFR ( Amer) 31 (> 60) L 09/12/17 05:46 Est GFR (Non-Af Amer) 25 (> 60) L 09/12/17 05:46 BUN/Creatinine Ratio 33 (6-26) H 09/12/17 05:46 Glucose 160 mg/dL (70-105) H 09/12/17 05:46 POC Glucose 133 (58-89) H 09/12/17 03:05 Calculated Osmolality 322 (280-300) H 09/12/17 05:46 Calcium 7.7 mg/dL (8.6-10.3) L 09/12/17 05:46 Alkaline Phosphatase 107 Units/L (34-104) H 09/09/17 20:10 Serum Total Protein 5.4 g/dL (6.4-8.9) L 09/09/17 20:10 Albumin 2.0 g/dL (3.5-5.7) L 09/09/17 20:10 Albumin/Globulin Ratio 0.6 (1.1-2.2) L 09/09/17 20:10 Vancomycin Trough 23.2 mcg/mL (10-20) H* 09/11/17 11:24 - Microbiology Findings Microbiology Findings: Microbiology, Last 48 Hours 09/11/17 12:00 Sputum Culture - Preliminary Sputum 09/10/17 15:00 Body Fluid Culture - Preliminary Pleural Fluid 09/11/17 10:46 Legionella Antigen - Final Urine,Catheterized Streptococcus pneumoniae Antigen (M - Final - Clinical Findings Intake & Output: Intake & Output 09/11/17 09/12/17 09/12/17 23:59 07:59 15:59 Intake Total 350 / 350 200 / 200 150 / 150 Output Total 545 / 545 295 / 295 0 / 0 Balance -195 / -195 -95 / -95 150 / 150 Weight 97.1 kg - Attending Attestation I examined this patient and my medical decision-making was reviewed with the Resident Physician. I agree with the documented findings, disposition and treatment plan as described except to the extent set forth below. We independently had [id number] contact with the patient Impression/Plan Acute hypoxic hypercarbic respiratory failure- iproving weaned to hi-flow nasal cannula from BiPAP Pneumonia- improving on ABx with plan to deescalate today. Pleural effusion-transudative likely s/t hydrostatic pressure Hydropneumothorax Ex Vacuo- cont chest tube SETH on CKD -gross anasarca cont albumin Nephro consultation CHF - holding diuresis because of worsening level of sCr Transfer to [facility] per Patient's request pending bed availability.
[2017-09-12] MEDS: Levofloxacin 750 MG/150 ML 750 MG/150 ML BAG IVPB SCH (08:08)
[2017-09-12] MEDS ORDERED: Naloxone 0.4 MG/ML INJ IVP PRN (08:43)
[2017-09-12] MEDS ORDERED: Vancomycin 1 EACH in EMPTY BAG 1 EACH IVPB SCH (09:00)
[2017-09-12] MEDS ORDERED: D5% in Water 1,000 ML IVC PRN (10:40)
[2017-09-12] MEDS ORDERED: *HR* Dextrose 50 % in Water (Syg) 50 ML SYRINGE IVP PRN (10:40)
[2017-09-12] MEDS ORDERED: Dextrose Gel 15 GM/37.5 ML TUBE PO PRN ×2 (10:40)
[2017-09-12] MEDS: Albumin 25% 25gram/100mL 25 GM/100 ML IV.SOLN IVPB SCH ×3 (11:20→23:36)
[2017-09-12] MEDS ORDERED: Insulin LISPRO 300 UNITS/3 ML VIAL SQ SCH ×2 (12:00→21:00)
[2017-09-12] MEDS ORDERED: *HR* Heparin 5,000 UNIT/ML VIAL SQ SCH (14:00)
[2017-09-13] MEDS ORDERED: *HR* Heparin 5,000 UNIT/ML VIAL SQ SCH
[2017-09-13] MEDS ORDERED: *HR* LORazepam 2 MG/ML VIAL ONE (01:06)
[2017-09-13] MEDS: Ipratropium/Albuterol Neb 3 ML IH SCH ×3 (01:17→07:32)
[2017-09-13] MEDS ORDERED: *HR* LORazepam 2 MG/ML VIAL IVP ONE (01:28)
[2017-09-13 02:44] LABS: Basophils % 0.1 %; Hematocrit 28.2 % (37.5-50.1); Hemoglobin 8.2 g/dL (12.9-16.9); Immature Granulocytes % 0.7 % (0-4); Lymphocytes # 0.5 K/mcL (0.6-4.6); Lymphocytes % 3.9 %; Mean Corpuscular HGB Conc 29.1 g/dL (31.6-35.5); Mean Corpuscular Hemoglobin 29.5 pg (28.0-33.3); Mean Corpuscular Volume 101.4 fL (83.0-100.0); Monocytes # 0.4 K/mcL (0.0-1.3); Monocytes % 3.3 %; Neutrophils # 10.5 K/mcL (1.6-8.9); Platelet Count 178 K/mcL (140-400); Red Blood Count 2.78 M/mcL (4.19-5.50); Red Cell Distribution Width 14.5 % (11.5-14.5)
[2017-09-13 03:03] LABS: Calcium 7.7 mg/dL (8.6-10.3); Potassium 4.9 mEq/L (3.5-5.1)
[2017-09-13 05:46] LABS: Hematocrit 34.3 % (37.5-50.1); Mean Corpuscular HGB Conc 29.2 g/dL (31.6-35.5); Mean Corpuscular Hemoglobin 29.9 pg (28.0-33.3); Mean Corpuscular Volume 102.4 fL (83.0-100.0); Mean Platelet Volume 12.3 fL (9.4-12.4); Nucleated Red Blood Cells 0.4 /100 WBC (0); Platelet Count 187 K/mcL (140-400); Red Blood Count 3.35 M/mcL (4.19-5.50); Red Cell Distribution Width 14.6 % (11.5-14.5)
[2017-09-13 05:58] VITALS: BP 122/65
[2017-09-13 06:04] LABS: Albumin/Globulin Ratio 1.2 (1.1-2.2); Bilirubin,Total 0.8 mg/dL (0.3-1.0); Calcium 7.7 mg/dL (8.6-10.3); Globulin 2.6 g/dL (2.4-3.5); Magnesium 1.8 mg/dL (1.6-2.6); Potassium 5.6 mEq/L (3.5-5.1); Total Protein 5.6 g/dL (6.4-8.9)
[2017-09-13 06:20] LABS: Large Platelets Present (Not Present); Macrocytosis Present (Not Present); Platelet Estimate Normal (Normal); Reactive Lymphocytes Present (Not Present)
[2017-09-13 06:22] LABS: Lymphocytes # 2.2 K/mcL (0.6-4.6); Monocytes # 0.3 K/mcL (0.0-1.3); Neutrophils # 12.6 K/mcL (1.6-8.9)
[2017-09-13] MEDS ORDERED: Insulin Human Regular 10 UNIT in 0.9 % Sodium Chloride 10 ML IV ONE (06:42)
[2017-09-13] MEDS ORDERED: *HR* Dextrose 50 % in Water (Syg) 50 ML SYRINGE IVP ONE (06:43)
[2017-09-13] MEDS ORDERED: *HR* Dextrose 50 % in Water (Syg) 50 ML SYRINGE ONE (06:47)
[2017-09-13] MEDS ORDERED: *HR* FentaNYL (PF) 100 MCG/2 ML VIAL IVP ONE (06:55)
[2017-09-13 06:56] LABS: ABG Base Excess -7 mEq/L (-2 to 3); ABG HCO3 22 mEq/L (21-27); ABG Oxygen Saturation 70 % (95-98); ABG PCO2 67 mmHg (35-45); ABG PH 7.13 pH Units (7.32-7.45); ABG PO2 49 mmHg (85-104); ABG TCO2 24 mEq/L (20-26); Blood Gas Modality VC; Blood Gas PEEP 10 cm H2O; Blood Gas Respiration Rate 14; Blood Gas VT 450 cc
[2017-09-13] MEDS ORDERED: *HR* FentaNYL (PF) 100 MCG/2 ML VIAL ONE (06:56)
[2017-09-13] MEDS ORDERED: Furosemide 40 MG/4 ML VIAL IVP ONE (07:00)
[2017-09-13] MEDS ORDERED: Albuterol 2.5 MG/3 ML NEBULIZER ONE (07:09)
[2017-09-13] MEDS ORDERED: *HR* Atropine Sulfate 1 MG/10 ML SYRINGE ONE (07:15)
[2017-09-13] MEDS ORDERED: FentaNYL (PF) 1,000 MCG in 0.9 % Sodium Chloride 80 ML IVC SCH (07:15)
--- NOTE | 2017-09-13 07:28 | Event Note ---
<Joe Malhotra - Last Filed: 09/13/17 07:28> Date of Encounter: 09/13/17 Time of Encounter: 06:00 At approximately 05:00 during post bath cleanup, patient became bradycardic and apneic. Charge nurse was called to room; both RNs assessed for pulse and respirations, and CPR was initiated at 05:10. Sabine zamora called overhead. Patient was then intubated and placed on ventilator support. Central line placement was attempted to maintain pressure support and due to poor IV access. Plan was for R sided IJ CVC. Procedure attempted by Dr. Malhotra, accompanied by Dr. Beckford. Site was prepared and procedure began. At 06:10, the first attempt failed due to guidewire resistance at approximately 20 cm. At this time , patient vitals were as follows: 95/62 (83) HR 66, 18, SPO2 71% on vent at 100% . Dopamine was started at 20mcg. Guidewire and needle were withdrawn, and second attempt was made. At approximately 06:15, second attempt failed, again due to guidewire advancement resistance at approximately 20 cm. Vitals after second attempt were as follows: 69/46 (54) HR 61, 22, 72%. At this time, Dr. Beckford attempted R IJ CVC placement at the same site. At 06:25, 3rd attempt failed, again due to guidewire advancement resistance at approximately 20 cm. Levophed was started 8 mcg. Vital signs were as follows: 70/48 (53) 62, 22, 72% . 4th attempt was made at 06:37. 4rd attempt failed, again due to guidewire advancement resistance at approximately 20 cm. PEEP was increased to 10. Right IJ CVC placement was then stopped after 4th attempt. <Yajaira Beckford - Last Filed: 09/13/17 07:55> Date of Encounter: 09/13/17 Sabine zamora called at 5:10am and I get to bedside immediately. Nurse staff and resident started CPR already. Pt was given epi 1mg and pt regain pulse after treatment. Pt was intubated and ventilation started. However, pt get pulseless again and CPR started again. Epi x1 and bicarbonate 50mEq iv x2 given, pt regain pulse again and BP is maintained. We also give Mg 2g and Calcium 2g iv. Plan for Rt IJ line. Pt has low saturation, PEEP started but BP get down with PEEP, dopamine drip through peripheral line started to maintain BP and allow for PEEP. Pt has transient low BP and low saturation and regain around BP 140/ 90 which allow PEEP at 8 and SpO2 at 82%. Agree with resident's documentation regarding IJ line trials. we didn't start levophed during the IJ line insertion (that's the only statement I cannot agree with resident's documentation). Intensivisit Dr Haji came arround 6:40 and then I sign out to him. He took over and supervise resident Dr Almaraz for right femoral line.
[2017-09-13] MEDS ORDERED: Albuterol 2.5 MG/3 ML NEBULIZER IH ONE (07:32)
[2017-09-13] MEDS ORDERED: Amiodarone Premix 360 MG/200 ML BAG IVC ONE (07:36)
[2017-09-13] MEDS ORDERED: Amiodarone Premix 150 MG/100 ML BAG IVPB ONE (07:36)
[2017-09-13] MEDS ORDERED: Amiodarone Premix 360 MG/200 ML BAG IVC SCH (07:45)
[2017-09-13] MEDS ORDERED: *HR* EPINEPHrine 1 MG/10 ML SYRINGE IVP ONE (08:17)
[2017-09-13] MEDS ORDERED: *HR* Atropine Sulfate 1 MG/10 ML SYRINGE IV ONE (08:17)
[2017-09-13] MEDS ORDERED: *HR* Magnesium Sulfate 2 GM/50 ML PIGGYBACK IVPB ONE (08:17)
--- NOTE | 2017-09-13 08:59 | Procedure Note ---
<Grabiel Varghese - Last Filed: 09/13/17 09:08> Date of procedure: 09/13/17 Pre-op diagnosis: Right-sided pneumothorax Post-op diagnosis: same Procedure: Right-sided chest tube. The patient was positioned in a normal fashion. He was cleaned in a normal fashion. The patient had the location of the chest tube localized by the nipple line as well as mid axillary line. At roughly fifth intercostal space an 8-Stateless catheter was inserted into the pleural cavity. Immediate air return was noted. Roughly 60 mL of air was suctioned out of the catheter by utilizing a syringe during an ACLS code. The catheter was subsequently hooked to a Pleur-evac. This was hooked to suction with a noted air leak. Soon after air leak subsided and pleural fluid began to escape. Catheter was sutured in place and dressing was placed over. Anesthesia: IV sedation Was there an assistant professor of biochemistry present: Yes Care Team Assistant: Toni Haji Estimated blood loss (cc): 0 Specimen: None Pathology: none sent Condition: critical Disposition: ICU <Toni Haji - Last Filed: 09/13/17 12:44> - Attending Attestation I examined this patient and my medical decision-making was reviewed with the Resident Physician. I agree with the documented findings, disposition and treatment plan as described except to the extent set forth below. We independently had [id number] contact with the patient I was present and participated in this procedure the procedure was performed skillfully by the resident physician
--- NOTE | 2017-09-13 08:59 | Procedure Note ---
<Grabiel Varghese - Last Filed: 09/13/17 09:05> Date of procedure: 09/13/17 Pre-op diagnosis: Hypotension Post-op diagnosis: same Procedure: Left femoral vein CVC. The patient was positioned in the normal fashion. He was cleaned and draped in the normal fashion. Under ultrasound guidance a needle was passed into the left femoral vein. Guidewire was passed. Guidewire was confirmed in the left femoral vein by ultrasound. A gm in the skin was made. The skin was dilated and catheter was placed over the guidewire. The guidewire was removed from a catheter. All 3 ports flushed and withdrew blood without difficulty. The catheter was sutured in place and dressing was placed. Anesthesia: IV sedation Was there an workforce development assistant present: Yes Technical Advisor: Toni Haji Estimated blood loss (cc): 5 Specimen: None Pathology: none sent Condition: critical Disposition: ICU <Toni Haji - Last Filed: 09/13/17 12:45> - Attending Attestation I examined this patient and my medical decision-making was reviewed with the Resident Physician. I agree with the documented findings, disposition and treatment plan as described except to the extent set forth below. We independently had [id number] contact with the patient I was present and supervised the resident physician during this procedure the procedure was performed skillfully
--- NOTE | 2017-09-13 08:59 | Death Note ---
<HalimaGrabiel S - Last Filed: 09/13/17 09:05> Pronouncement Note - Date and Time of Date of : 09/13/17 Time of : 08:18 - Additional Data Confirmation of : no pulse, no respirations, no heart sounds, pupils fixed and dilated Family: contacted Attending physician: Brock Benoit <Toni Haji W - Last Filed: 09/13/17 12:46> Pronouncement Note - Additional Data Attending physician: Brock Benoit - Attending Attestation I examined this patient and my medical decision-making was reviewed with the Resident Physician. I agree with the documented findings, disposition and treatment plan as described except to the extent set forth below. We independently had [id number]-us-[id number] contact with the patient
--- NOTE | 2017-09-13 12:03 | Death Note ---
<Grabiel Varghese - Last Filed: 09/13/17 12:01> Discharge Sum: Summary - Date and Time Date of admission: 09/09/17 14:20 Date of : 09/13/17 Time of : 08:18 - Additional Data Confirmation of as documented by pronouncing clinician: no pulse, no respirations, no heart sounds, pupils fixed and dilated Family: contacted Attending/PCP notified?: Yes Attending physician: Brock Benoit Discharge Sum: Diag - PCOD Probable Cause of : Cardiorespiratory arrest Discharge Sum: Prov - Provider Primary care physician: PCP NONE Admitting clinician: Brock Benoit Attending physician on admission: Toni Haji Consults: 09/09/17 15:23 Consult to Wound Care [CONS] Routine Reason for Consult: multiple (8) venous ulcers . Call Completed: No 09/09/17 19:54 Consult to Critical Care [CONS] Routine Consulting Provider: Pulm Crit [facility] Sleep [facility]eria Reason for Consult: Respiratory failure with pleural effusion and pneumonia Time Notified: 14:00 Call Completed: Yes 09/12/17 10:40 Consult to Nephrology [CONS] Routine Consulting Provider: [facility] HT[facility] NISSA Reason for Consult: Worsening renal function, Hx of CKD Call Completed: No Pronouncing clinician: Grabiel Varghese - Attending Attestation I examined this patient and my medical decision-making was reviewed with the Resident Physician. I agree with the documented findings, disposition and treatment plan as described except to the extent set forth below. <Toni Haji - Last Filed: 09/13/17 12:46> Discharge Sum: Summary - Date and Time Date of admission: 09/09/17 14:20 - Additional Data Attending physician: Brock Benoit Discharge Sum: Prov - Provider Primary care physician: PCP NONE Consults: 09/09/17 15:23 Consult to Wound Care [CONS] Routine Reason for Consult: multiple (8) venous ulcers . Call Completed: No 09/09/17 19:54 Consult to Critical Care [CONS] Routine Consulting Provider: Pulm Crit Care [facility] Sleep Valeria Reason for Consult: Respiratory failure with pleural effusion and pneumonia Time Notified: 14:00 Call Completed: Yes 09/12/17 10:40 Consult to Nephrology [CONS] Routine Consulting Provider: Kidney [facility] HTN Sp[facility] NISSA Reason for Consult: Worsening renal function, Hx of CKD Call Completed: No - Attending Attestation See critical care note entered on same day for overview of this case and unfortunate demise of the patient
--- NOTE | 2017-09-13 12:40 | Event Note ---
Date of Encounter: 09/13/17 Time of Encounter: 12:30
--- NOTE | 2017-09-13 12:43 | Critical Care Progress Note ---
Critical Care Note - Narrative Summary: The high probability of a clinically significant, sudden or life threatening deterioration of the patient's condition required my full and direct attention, intervention and personal management. Overnight patient increasingly became lethargic per nursing report and after a bath was noted to become bradycardic and lost a pulse ACLS was initiated and ROSC was obtained which was shortly thereafter lost again with another round of ACLS and ROSC subsequent to this patient noted to have movement of all extremities and was overbreathing the ventilator after emergent intubation. The nursing staff at that time make contact with the patient's spouse and she was on her way to the hospital but was unclear when she could arrive. He was started on vasopressor support for hypotension and at this point a central line was attempted by the overnight covering physician which was unsuccessful after multiple attempts. At this point I was physically available in the hospital and assumed care of the patient. Patient had some noted spontaneous respirations and spontaneous movement of all extremities and was not requiring vasopressor support of the time that I came in. He was noted to be significantly hypoxemic despite 100% FiO2. He had bilateral air entry on examination without evidence of crepitus in emergent central venous catheter was inserted by the resident physician under my supervision which was successfully placed on the first attempt. Initial laboratory values were returning for the patient which showed a hypoxic hypercarbic respiratory failure and mild hyperkalemia along with worsening SETH. We administered bicarbonate along with insulin and D50 for treatment of hyperkalemia we also treated the patient was calcium gluconate. ECG was performed at this time which was notable for supraventricular tachyarrhythmia and patient was loaded with amiodarone. ECG was also noted for a overall low voltage bedside echocardiogram was performed and was negative for pericardial effusion. Although patient was on 2 vasopressors at this point he unfortunately patient increasingly hypoxemic and more hypotensive and had another episode of bradycardia. At which point ACLS was again performed with ROSC subsequent chest x-ray was notable for large right-sided pneumothorax for which an emergent 8-Turkish pleural catheter was inserted and patient unfortunately had another cardiac arrest despite multiple rounds of ACLS including administration of defibrillation for ventricular fibrillation and placement of another emergent 10-Turkish chest tube ROSC could not he achieved 4 more than a few seconds of time before ACLS would have to be restarted after nearly one hour of this process it was clear that further attempts at cardiopulmonary resuscitation were futile and CPR was terminated. Shortly thereafter the patient's arrived along with family friend and I updated them that the patient had I explained the situation as well as I could and that every attempt was made to restore cardiac perfusion but unfortunately this was unsuccessful. All questions answered in the ICU and I offered emotional support and offered to provide the family with postoral support which they declined in lieu of of their own upper tier. Though I think this for her efforts at the end of the conversation. Was code activated?: Yes - CC Time CC start date: 09/13/17 CC start time: 06:45 CC end date: 09/13/17 CC end time: 08:12 CC total mins: 87 Critical care time: 75 - 104 mins
--- NOTE | 2017-09-13 12:49 | Procedure Note ---
Date of procedure: 09/13/17 Pre-op diagnosis: Right-sided pneumothorax Post-op diagnosis: same Procedure: I was called to place a right-sided chest tube for this patient because his condition was deteriorating and he already had a small bore chest tube for pneumothorax but clinical condition was deteriorating. Due to urgency over the procedure there was no time to talk to the family and patient was already on a supine position and the right sided chest was cleaned in the usual fashion. Then with syringe and the need to attached close to the previous chest tube which was already placed the needle was passed with some had and then guidewire was passed through the needle subsequently and dilator and then 10-Kazakh pig- tail chest he was placed without immediate complications and this was connected with the Pleur-evac. Patient was in the CODE BLUE when the tube was placed. Chest tube was connected with Pleur-evac and suture it and placed without immediate complications. Anesthesia: none Surgeon: Filippo Cordero Was there an exceptional children teacher assistant present: No Estimated blood loss (cc): 0.5 Specimen: Not obtained Pathology: none sent Disposition: ICU
[2017-09-14] MEDS ORDERED: Levofloxacin 750 MG/150 ML 750 MG/150 ML BAG IVPB SCH (09:00)
--- NOTE | 2017-09-14 10:02 | Electrocardiograph Report ---
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
--- NOTE | 2017-09-14 17:28 | Electrocardiograph Report ---
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
== END 2017-09-13 08:18 | disposition expired | DRG 208 ==
LOC: ICNU 14:20
PROVIDERS: ADMIT Hospitalist; ATTEND Hospitalist